=== PATIENT | female | born 1970 | race Caucasian/White ===

== ENCOUNTER 2024-10-08 19:37 | Emergency (ER) | payer BC ==
[~2024-10-08] VITALS: Ht 172.7 cm; Wt 67.6 kg
[2024-10-08 20:49] LABS: INFLUENZA B NAA NEGATIVE (NEGATIVE); RESPIRATORY SYNCYTIAL VIR NAA NEGATIVE (NEGATIVE)
[2024-10-08] MEDS ORDERED: SODIUM CHLORIDE 0.9% 500 ML IV PRN (21:00)
[2024-10-08] MEDS ORDERED: ondansetron HCL 4 MG/2 ML VIAL IV ONE (21:00)
[2024-10-08 22:14] LABS: BASOPHILS 0.4 % (0-2); EOSINOPHILS 0.1 % (0-6); HEMATOCRIT 39.5 % (35.0-50.0); HEMOGLOBIN 13.6 g/dL (12.0-18.0); LYMPHOCYTES 17.5 % (24-44); MCH 31.6 (27-36); MCHC 34.4 g/dl (30-36); MONOCYTES 4.2 % (0-12); NEUTROPHILS 77.8 % (39-80); PLATELET COUNT 214 K/uL (140-440); RDW 13.6 (10.5-15.0)
[2024-10-08] MEDS ORDERED: SODIUM CHLORIDE 0.9% 1,000 ML IV ONE (22:15)
[2024-10-08 22:30] LABS: ALBUMIN 4.1 g/dL (3.4-5.0); ALBUMIN/GLOBULIN RATIO 1.03 (1.1-2.4); ANION GAP 13.7 (7-21); BILIRUBIN, TOTAL 0.3 ng/dL (0.2-1.0); BUN/CREATININE RATIO 13.15 (6.0-28.6); CALCIUM 9.4 mg/dL (8.5-10.1); CREATININE, SERUM 0.76 mg/dL (0.55-1.02); MAGNESIUM 2.2 mg/dL (1.8-2.4); POTASSIUM 3.7 mmol/L (3.5-5.1); PROTEIN, TOTAL 8.1 g/dL (6.4-8.2)
[2024-10-08] MEDS ORDERED: AMOXICILLIN500 MG PO (23:28)
[2024-10-08] MEDS ORDERED: AMOXICILLIN 500 MG HOME.PACK PO ONE (23:30)
[2024-10-08] MEDS ORDERED: methylPREDNISolone 4 MG HOME.PACK PO ONE (23:30)
[2024-10-08 23:42] VITALS: BP 138/78
[2024-10-09] MEDS ORDERED: ONDANSETRON ODT8 MG PO (07:18)
== END 2024-10-08 23:42 | disposition home or self-care (01) ==
LOC: ED 19:37
PROVIDERS: Family Medicine
DX: H66.43 Suppurative otitis media, unspecified, bilateral (principal); Z88.5 Allergy status to narcotic agent; Z11.52 Encounter for screening for COVID-19
CPT/HCPCS: 36415; 80053; 83735; 85025; 87502; 96361; 96374; 99284-25; J2405; J7030; U0002